=== PATIENT | male | born 1960 ===

== ENCOUNTER 2017-09-20 09:42 | Emergency (ER) | payer OTHER ==
[2017-09-20 10:02] VITALS: BMI 32.9
[2017-09-20 10:04] VITALS: BP 171/86; PULSE 86; RESP 20; TEMP 98.6; O2SAT 98
--- NOTE | 2017-09-20 10:17 | C.PDOC ---
History Of Present Illness 57yo male with history of diabetes, presents to ED with complaints of redness and swelling to his left lateral jalloh for the past 4 days. He reports there initially was a "pimple" in the area with purulent discharge. Patient presents today for evaluation as the pain is still present and is 4/10 in intensity. He denies any associated fever, chills, nausea or vomiting. No other complaints. Time Seen by Provider: 09/20/17 09:53 Chief Complaint (Nursing): Lower Extremity Problem/Injury History Per: Patient History/Exam Limitations: no limitations Onset/Duration Of Symptoms: Days Current Symptoms Are (Timing): Still Present Pain Scale Rating Of: 4 Recent travel outside of the [place]: No Additional History Per: Patient Past Medical History Reviewed: Historical Data, Nursing Documentation, Vital Signs Vital Signs: Last Vital Signs Temp 98.6 F 09/20/17 10:02 Pulse 86 09/20/17 10:02 Resp 20 09/20/17 10:02 BP 171/86 H 09/20/17 10:02 Pulse Ox 98 09/20/17 10:41 - Medical History PMH: Diabetes, HTN Surgical History: No Surg Hx Family History: States: No Known Family Hx - Social History Hx Alcohol Use: No Hx Substance Use: No - Immunization History Hx Tetanus Toxoid Vaccination: No Hx Influenza Vaccination: Yes Hx Pneumococcal Vaccination: No Review Of Systems Except As Marked, All Systems Reviewed And Found Negative. Constitutional: Negative for: Fever, Chills Gastrointestinal: Negative for: Nausea, Vomiting Musculoskeletal: Positive for: Leg Pain (left) Physical Exam - Physical Exam Appears: Non-toxic, No Acute Distress Skin: Normal Color, Warm Head: Normacephalic Eye(s): bilateral: Normal Inspection Neck: Normal ROM, Supple Chest: Symmetrical Cardiovascular: Rhythm Regular Respiratory: Normal Breath Sounds Extremity: Normal ROM, Other (left lateral jalloh with an area of 3cm diameter region of erythema, warmth and swelling. No discharge noted.) Neurological/Psych: Oriented x3 ED Course And Treatment O2 Sat by Pulse Oximetry: 98 (RA) Pulse Ox Interpretation: Normal - Incision & Drainage Of Abscess Used During Procedure: Continuous Pulse Oximetry Prep Used: Sterile Water Procedure: Incised W/Scalpel Blade#:, Irrigated Cavity W/Saline, Packed W/Gauze (small parminder made by scalpel) Medical Decision Making Medical Decision Making: Impression: Abscess in left lower extremity Plan: -- Abscess incised and drained by provider; see procedure noted -- Clindamycin 300 mg PO Patient discharged home with prescription for clindamycin and instructed to follow up with PCP in 2-3 days. Disposition Counseled Patient/Family Regarding: Diagnosis, Need For Followup, Rx Given - Disposition Referrals: [facility] [Outside] Disposition: HOME/ ROUTINE Disposition Time: 10:15 Condition: STABLE Prescriptions: Clindamycin [Cleocin] 1 cap PO QID #30 cap Instructions: Boil Forms: [employer] (Salvadorean), Gen Discharge Inst Salvadorean - Clinical Impression Clinical Impression: Abscess - Scribe Statement The provider has reviewed the documentation as recorded by the Scribe (Audra Pichardo) Provider Attestation: All medical record entries made by the Scribe were at my direction and personally dictated by me. I have reviewed the chart and agree that the record accurately reflects my personal performance of the history, physical exam, medical decision making, and the department course for this patient. I have also personally directed, reviewed, and agree with the discharge instructions and disposition.
== END 2017-09-20 10:48 | disposition home or self-care (01) ==
LOC: C.ER 09:42
DX: L02.416 Cutaneous abscess of left lower limb (principal); E11.9 Type 2 diabetes mellitus without complications; I10 Essential (primary) hypertension